=== PATIENT | male | born 1955 | race Caucasian/White ===

== ENCOUNTER 2019-10-28 13:31 | Emergency (ER) | payer OTHER ==
[~2019-10-28] VITALS: Ht 172.7 cm; Wt 170.1 kg
[2019-10-28 14:58] LABS: BASOPHILS ABSOLUTE AUTO 0.01 K/mm3 (0.00-0.23); BASOPHILS PERCENT AUTO 0 % (0-2); EOSINOPHILS ABSOLUTE AUTO 0.01 K/mm3 (0.00-0.68); EOSINOPHILS PERCENT AUTO 0 % (0-6); Hematocrit 47.5 % (37.0-53.0); Hemoglobin 13.7 g/dL (13.5-17.5); IMMATURE GRAN ABSOLUTE AUTO 0.06 K/mm3 (0.00-0.10); IMMATURE GRAN PERCENT AUTO 1 % (0-1); LYMPHOCYTES ABSOLUTE AUTO 0.75 K/mm3 (0.84-5.20); LYMPHOCYTES PERCENT AUTO 7 % (21-46); MONOCYTES ABSOLUTE AUTO 0.85 K/mm3 (0.16-1.47); MONOCYTES PERCENT AUTO 8 % (4-13); Mean Corpuscular HGB 26.6 pg (26.0-34.0); Mean Corpuscular HGB Conc 28.8 g/dL (31.5-36.5); Mean Corpuscular Volume 92 fL (80-100); Mean Platelet Volume 9.9 fL (9.1-12.4); NEUTROPHILS ABSOLUTE AUTO 9.43 K/mm3 (1.96-9.15); NEUTROPHILS PERCENT AUTO 85 % (41-73); Platelet Count 230 K/mm3 (150-400); RDW Coefficient Variation 15.2 % (11.7-14.2); RDW Standard Deviation 51.4 fL (35.1-46.3); Red Blood Cell Count 5.16 M/mm3 (4.30-5.90); White Blood Cell Count 11.11 K/mm3 (4.00-11.30)
[2019-10-28 15:20] LABS: PCO2 Arterial 66.9 mmHg (35-45); PO2 Arterial 67.5 mmHg (80-100); pH Blood Arterial 7.38 (7.35-7.45)
[2019-10-28 15:29] LABS: Troponin I <0.015 ng/mL (0.000-0.040)
[2019-10-28 15:33] LABS: Alanine Aminotransfer (ALT/SGP 27 U/L (12-78); Albumin/Globulin Ratio 0.8 (0.8-1.8); Alk Phos 78 U/L (50-136); Anion Gap 4 mmol/L (6-16); Aspartate Aminotrans (AST/SGOT 19 U/L (12-37); Bilirubin, Total 0.3 mg/dL (0.1-1.0); Blood Urea Nitrogen 16 mg/dL (8-24); Bun/Creatinine Ratio 17.5 (12.0-20.0); CO2, Blood 37 mmol/L (21-32); Calcium, Blood 8.5 mg/dL (8.5-10.1); Chloride, Blood 99 mmol/L (98-108); Creatinine, Blood 0.92 mg/dL (0.60-1.20); Globulin, Blood 3.9 g/dL (2.2-4.0); Glomerular Filtration Rate >60 (60-); Glucose, Blood 138 mg/dL (70-99); Potassium, Blood 4.4 mmol/L (3.5-5.5); Sodium, Blood 140 mmol/L (136-145); Total Protein, Blood 6.9 g/dL (6.4-8.2)
[2019-10-30] MEDS ORDERED: IPRAT-ALBUT 0.5-3 ML INH (19:22)
[2019-10-30] MEDS ORDERED: [UNRECOGNIZED DRUG - OTHER] UR (19:22)
[2019-10-30] MEDS ORDERED: ELIQUIS5 MG PO (19:22)
[2019-10-30] MEDS ORDERED: SYMBICORT 80-10.2 GM INH (19:23)
[2019-10-30] MEDS ORDERED: ATOR20 PO (19:23)
[2019-10-30] MEDS ORDERED: DILTIAZEM 24HR240 M3 PO (19:23)
[2019-10-30] MEDS ORDERED: ABILIFY MYCITE10 MG PO (19:23)
[2019-10-30] MEDS ORDERED: FLONASE ALLERG9.9 ML (19:24)
[2019-10-30] MEDS ORDERED: Prozac20 MG PO (19:24)
[2019-10-30] MEDS ORDERED: METO25ER PO (19:25)
[2019-10-30] MEDS ORDERED: TIOT18 INH (19:25)
[2019-10-30] MEDS ORDERED: FURO40 PO (19:26)
[2019-10-30] MEDS ORDERED: POTCHL20ER PO (19:26)
[2019-10-30] MEDS ORDERED: TORS10 PO (19:26)
== END 2019-10-28 18:34 | disposition home or self-care (01) ==
LOC: ER 13:31
PROVIDERS: Emergency Medicine
DX: J44.9 Chronic obstructive pulmonary disease, unspecified (principal); R09.02 Hypoxemia; Z88.5 Allergy status to narcotic agent
CPT/HCPCS: 36415; 36600; 71045; 71260; 80053; 82803; 83880; 84443; 84484; 85025; 85379; 93005; 93010; 99284-25; Q9967